=== PATIENT | female | born 1950 | race African-American/Black ===

== ENCOUNTER 2020-04-09 15:14 | Inpatient (IN) | payer OTHER ==
[~2020-04-09] VITALS: Ht 170.2 cm; Wt 68.7 kg
[2020-04-09] MEDS ORDERED: SODIUM CHLORIDE 0.9% 1,000 ML IV ONE (16:45)
[2020-04-09 17:23] LABS: Basophils # (auto) 0 10 ^3/uL (0-0.2); Basophils % (auto) 0.6 % (0.0-2.0); Eosinophils # (auto) 0 10 ^3/uL (0-0.8); Eosinophils % (auto) 0.1 % (0.0-7.0); Hematocrit 31.5 % (36.0-46.0); Hemoglobin 10.2 g/dL (12.2-16.2); Lymphocytes % (auto) 27.4 % (10.0-50.0); Mean Corpuscular Hemoglobin 23.7 pg (28.0-32.0); Mean Corpuscular Hgb Conc. 32.4 g/dL (32.0-36.0); Monocytes # (auto) 0.4 10 ^3/uL (0-1.3); Monocytes % (auto) 4.8 % (0.0-12.0); Neutrophils # (auto) 4.9 10 ^3/uL (1.6-8.6); Neutrophils % (auto) 67.1 % (37.0-80.0); Platelet Count (auto) 379 10^3/uL (140-450); Red Blood Cells 4.31 10^6/uL (4.0-5.20); White Blood Cell 7.4 10^3/uL (4.4-10.8)
[2020-04-09 17:25] LABS: Red Cell Distribution Width 20.2 % (11.8-14.3)
[2020-04-09 17:34] LABS: Alcohol, Urine < 3.0 mg/dL (0-10); Amphetamine Screen, Urine NEGATIVE (NEGATIVE); Barbiturate Scree,Urine NEGATIVE (NEGATIVE); Benzodiazephine Screen, Urine NEGATIVE (NEGATIVE); Cannabinoid Screen, Urine NEGATIVE (NEGATIVE); Cocaine Screen, Urine NEGATIVE (NEGATIVE); Opiate Scree,Urine NEGATIVE (NEGATIVE); Phencyclidine Screen, Urine NEGATIVE (NEGATIVE)
[2020-04-09 17:35] LABS: Urine Bacteria NONE SEEN /hpf (None Seen); Urine Blood TRACE /uL (Negative); Urine Hyaline Cast FEW /lpf (0 - 2); Urine Mucus FEW (None Seen); Urine Specific Gravity 1.019 (1.001-1.035); Urine WBC 47 /hpf (0 - 5); Urine WBC Clumps PRESENT /hpf (None Seen)
[2020-04-09 17:35] LABS: Albumin 2.6 g/dL (3.4-5.0); Magnesium 2.2 mg/dL (1.6-2.6)
[2020-04-09 17:41] LABS: BUN/Creatinine Ratio 20.8; Bilirubin, Total 1.7 mg/dL (0.2-1.0); Total Protein 8.6 g/dL (6.4-8.2)
[2020-04-09 17:50] LABS: Calcium 13.1 mg/dL (8.5-10.1); Potassium 2.8 mmol/L (3.5-5.1)
[2020-04-09] MEDS ORDERED: POTASSIUM CHL 20 Meq TABLET PO ONE ×2 (18:00→18:15)
[2020-04-09] MEDS ORDERED: DOCUSATE SOD 100 MG CAP PO PRN (21:45)
[2020-04-09] MEDS ORDERED: ACETAMINOPHEN 325 MG TAB PO PRN (21:45)
[2020-04-09] MEDS ORDERED: HYDROcodone-ACET 5/325MG TAB PO PRN (21:45)
[2020-04-09] MEDS ORDERED: ONDANSETRON HCL 4 MG/2 ML VIAL IV PRN (21:45)
--- NOTE | 2020-04-09 23:00 | NUR ---
MS admit from ER CHRISTIANA SALTER admitted to tele/MS after NO SBAR received. Patient oriented to Kishor coyne RN, west unit, 275 room, A bed, and unit policies regarding patient care and visiting hours. Patient weighed by bedscale and encouraged to call if they need something. All questions and concerns addressed, patient verbalized understanding.
--- NOTE | 2020-04-09 23:00 | NUR ---
Picture taken of circular abrasion on lower back. picture form placed in wound care box.
[2020-04-09] MEDS: SODIUM CHLORIDE 0.9% 1,000 ML IV SCH (23:09)
--- NOTE | 2020-04-09 23:39 | NUR ---
Per Kelli the patient does not have any family who lives here in [place], all of her relatives live in [place].
--- NOTE | 2020-04-09 23:39 | NUR ---
Spoke with the patient's cousin Kelli, she stated the patient gave her phone number to Stu, the lady who owns the property she stays on, to contact her in case anything happened. Stu called Kelli today after the patient had not been outside in 3-4 days and had barely eaten. Kelli had Stu call EMS and bring the patient to the hospital to get her help. Stu's phone number is [phone].
--- NOTE | 2020-04-09 23:46 | NUR ---
Spoke to MD Quintero and notified patient has no diet ordered, and it was cancelled earlier, and clarification, of patient being on medsurge or telemetry. MD Quintero gave new orders: keep patient on medsurge, and have patient on a regular diet. Read back and confirmed.
[2020-04-10 05:00] VITALS: BP 136/88
--- NOTE | 2020-04-10 06:37 | NUR ---
Paged MD Quintero to notify of patient having blood in urine. Awaiting call back.
[2020-04-10 08:00] VITALS: BP 115/72
--- NOTE | 2020-04-10 08:00 | NUR ---
Opening Shift Note Assumed care of patient, awake and alertx3. No S/S of distress/SOB or pain. Instructed on POC and to call for assist PRN. Be d at lowest locked position and call light within reach. Will continue to monitor for changes Q1hr and PRN.
[2020-04-10 09:00] VITALS: BP 115/72
[2020-04-10] MEDS: hydrALAZINE HCL 10 MG TAB PO SCH (10:00)
[2020-04-10] MEDS ORDERED: POTASSIUM CHL 20 Meq TABLET PO ONE (10:30)
[2020-04-10] MEDS ORDERED: cefTRIAXone 1GM/50ML D5W 50 ML IV ONE (10:30)
--- NOTE | 2020-04-10 10:30 | NUR ---
Dr. Mcgrath at bedside
--- NOTE | 2020-04-10 11:30 | NUR ---
Per MD hold potassium until CMP labs come back.
--- NOTE | 2020-04-10 12:03 | NUR ---
Nutrition Consult/assessment Notes Please see attached link for complete assessment Est energy needs BW 63 [id number] kcal (25-30 kcal/kg BW), Est protein needs: 63-75g (1-1.2g/kgBW). Will reassess prn. Addendum: 04/10/20 at [address] Amended: Links added.
[2020-04-10 13:00] VITALS: BP 137/68
[2020-04-10] MEDS: SODIUM CHLORIDE 0.9% 1,000 ML IV SCH (14:22)
--- NOTE | 2020-04-10 14:27 | NUR ---
Assisted patient to bedside commode with standby assist.
--- NOTE | 2020-04-10 17:45 | NUR ---
Called lab, still have not drawn labs for the patient. Awaiting call back, and sending a flow match sofa cutter right away per secretary book keeper.
[2020-04-10 18:44] LABS: Albumin 2.2 g/dL (3.4-5.0); Calcium 10.9 mg/dL (8.5-10.1); Potassium 3.1 mmol/L (3.5-5.1)
[2020-04-10 18:48] LABS: BUN/Creatinine Ratio 20.4; Bilirubin, Total 0.4 mg/dL (0.2-1.0); Total Protein 7.2 g/dL (6.4-8.2)
--- NOTE | 2020-04-10 19:14 | NUR ---
Closing note Patient is comfortably resting in bed on room air, no s/s of distress/sob noted/stated. Bed at lowest locked position and call light within reach. bed alarm on. Will endorse care to NOC RN.
--- NOTE | 2020-04-10 19:20 | NUR ---
Received report from the Day Shift RN. Thornton. Pt. resting and still sleeping after dinner. Pt. denies pain when assessed. Keep pt. room environment safe and quiet with bed alarms on continuous.
[2020-04-10 22:00] VITALS: BP 103/60
--- NOTE | 2020-04-10 23:00 | NUR ---
Provided pt. assistance with ADL's and assisted to the BSC. Pt. has unsteady gait and is generally weak. Continuous with bed alarms on while pt. is in bed. Keep clean, dry, safe and software integration developer bed.
[2020-04-11] VITALS (7 sets, daily range): BP systolic 124–199; BP diastolic 66–102
--- NOTE | 2020-04-11 00:30 | NUR ---
Pt. is asleep. No s/s of pain or discomfort. Pt. with call-light within reach and bed alarms on.
--- NOTE | 2020-04-11 03:30 | NUR ---
Pt. provided assistance with ADL's and assisted to the BSC and back to bed. Bed alarms on. Pt. able to void well clear yellow urine in sufficient amount.
--- NOTE | 2020-04-11 05:00 | NUR ---
Pt. awakens intermittently to go to the BSC. Returned to sleep. Bed alarms on continuously.
--- NOTE | 2020-04-11 07:39 | NUR ---
Opening Shift Note Assumed care of patient, patient comfortably sleeping in bed, on room air, breath sounds even and unlabored. No S/S of distress/SOB or pain. Instructed on POC and to call for assist PRN. Bed at lowest locked position and call light within reach. Will continue to monitor for changes Q1hr and PRN
[2020-04-11] MEDS: SODIUM CHLORIDE 0.9% 1,000 ML IV SCH ×2 (07:40→23:42)
--- NOTE | 2020-04-11 09:24 | NUR ---
Dr. Mcgrath at bedside. called Microbiology regarding blood cultures
[2020-04-11] MEDS: cefTRIAXone 1GM/50ML D5W 50 ML IV SCH (09:32)
[2020-04-11] MEDS: hydrALAZINE HCL 10 MG TAB PO SCH (10:17)
[2020-04-11 12:35] LABS: Calcium 11.1 mg/dL (8.5-10.1); Potassium 3.2 mmol/L (3.5-5.1)
[2020-04-11 12:39] LABS: BUN/Creatinine Ratio 18.3
--- NOTE | 2020-04-11 14:00 | NUR ---
Areli Mcgrath regarding patient's BP. Patient's blood pressure is 162/87, HR 70, no c/o pain, no s/s of distress noted. Will continue to monitor PRN. Addendum: 04/11/20 at 1444 by Ginette Haney RN Orders received. Please see
[2020-04-11] MEDS ORDERED: METOPROLOL TARTRATE 25 MG TAB PO ONE (14:45)
--- NOTE | 2020-04-11 17:46 | NUR ---
Patients blood pressure is 187/76, HR 63, Spo2 100%. No s/s of distress/sob noted/stated. No c/o pain. Paged credit union manager Hospitalist. Addendum: 04/11/20 at 1752 by Ginette Haney RN Orders received, for hydralazine 10mg, IV once and Q2H PRN for systolic BP over 160. Orders received and verified. Addendum: 04/11/20 at 1810 by Ginette Haney RN received a call from pharmacist, hydralazine is currently backordered, unavailable. Paged Dr. Heller for orders.
[2020-04-11] MEDS ORDERED: hydrALAZINE HCL 20 MG/ML VL IV PRN (18:00)
[2020-04-11] MEDS ORDERED: hydrALAZINE HCL 20 MG/ML VL IV ONE (18:00)
--- NOTE | 2020-04-11 18:54 | NUR ---
closing note Patient is comfortably resting in bed no s/s of distress/sob noted/stated. Bed at lowest locked position and call light within reach. Will endorse care to NOC RN. Awaiting for Hospitalist call
--- NOTE | 2020-04-11 19:30 | NUR ---
Opening Shift Note Assumed care of patient, awake and alert. No S/S of distress/SOB or pain. Instructed on POC and to call for assist PRN, will continue to monitor for changes Q1hr and PRN. Monitoring BP
--- NOTE | 2020-04-11 20:00 | NUR ---
got hydralazine from ROSEANNE but pt;s BP is better. Will continue to monitor
[2020-04-11] MEDS: METOPROLOL TARTRATE 25 MG TAB PO SCH (21:38)
--- NOTE | 2020-04-11 23:04 | NUR ---
refused BP med for now. Will recheck again later
[2020-04-12 05:00] VITALS: BP 152/72
[2020-04-12 09:00] VITALS: BP 140/74
[2020-04-12] MEDS ORDERED: VANCOMYCIN PER PHARMACY 0 MG IV SCH (09:00)
[2020-04-12] MEDS: cefTRIAXone 1GM/50ML D5W 50 ML IV SCH (10:27)
[2020-04-12] MEDS: D5W/ SOD CHL 0.9%/KCL 20MEQ 1,000 ML IV SCH ×2 (10:28→21:32)
[2020-04-12] MEDS: hydrALAZINE HCL 10 MG TAB PO SCH (10:28)
[2020-04-12] MEDS: METOPROLOL TARTRATE 25 MG TAB PO SCH ×2 (10:29→21:32)
--- NOTE | 2020-04-12 11:14 | NUR ---
Assessment Social Service consult regarding patient being homeless. Patient states prior to admission she lived in her truck. Patient states she been living in her truck for the past 10 years and functioned independently. Patient states she receives an amount of 1450 from [employer]. Patient informed me she has a cane. Discussed with patient options and resources for placement. Provided information to clothes closet and meal prior to discharge. Patient accepted resource. Patient stated she will make her own arraignments for a living using resources provided. Patient requested glasses. Informed patient I will informed bedside nurse. Offered pt taxi voucher within 30 miles and patient agreed. Completed home less assessment and patient signed homeless waiver. Will follow-up and provide intervention as appropriate. Informed KIM Plascencia regarding glasses for patient. Addendum: 04/12/20 at 1122 by SHAUNA TEAGUE Amended: Links added.
[2020-04-12] MEDS: VANCOMYCIN 1GM/250ML 250 ML IV SCH (11:32)
[2020-04-12 12:37] LABS: Creatinine, Urine 70 mg/dL (30.0-125.0); Sodium Urine 46 mmol/L (40-220)
[2020-04-12 13:00] VITALS: BP 145/72
[2020-04-12 17:00] VITALS: BP 127/70
[2020-04-12 22:00] VITALS: BP 144/72
[2020-04-13 05:00] VITALS: BP 145/61
[2020-04-13 07:17] LABS: Albumin 1.8 g/dL (3.4-5.0); Calcium 9.7 mg/dL (8.5-10.1); Potassium 3.4 mmol/L (3.5-5.1)
[2020-04-13 07:21] LABS: BUN/Creatinine Ratio 19.2; Bilirubin, Total 0.2 mg/dL (0.2-1.0); Total Protein 6.2 g/dL (6.4-8.2)
--- NOTE | 2020-04-13 07:35 | NUR ---
Opening Shift Note Assumed care of patient, awake and alert. No S/S of distress/SOB or pain. Updated on POC and instructed to call for assistance PRN, patient verbalized understanding. Bed locked in lowest position , side rail up x2, call light within reach. Safety precautions in place. Will continue to monitor for changes Q1hr and PRN.
[2020-04-13 09:00] VITALS: BP 140/85
[2020-04-13] MEDS: cefTRIAXone 1GM/50ML D5W 50 ML IV SCH (09:03)
[2020-04-13] MEDS: hydrALAZINE HCL 10 MG TAB PO SCH (09:04)
[2020-04-13] MEDS: METOPROLOL TARTRATE 25 MG TAB PO SCH (09:05)
[2020-04-13] MEDS ORDERED: POTASSIUM PHOSPHATE 44 MEQ in D5W 5% 250 ML IV ONE (10:15)
[2020-04-13] MEDS: VANCOMYCIN 1GM/250ML 250 ML IV SCH (11:00)
[2020-04-13] MEDS: D5W/ SOD CHL 0.9%/KCL 20MEQ 1,000 ML IV SCH (11:07)
[2020-04-13 13:00] VITALS: BP 146/89
--- NOTE | 2020-04-13 13:16 | NUR ---
SPOKE WITH MD BRAVO REGARDING NEGATIVE HEAD CT, PATIENT IS OKAY TO BE DISCHARGED ONCE POTASSIUM PHOSPHATE INFUSION IS COMPLETED.
--- NOTE | 2020-04-13 13:57 | NUR ---
PATIENT RX DELIVERED TO BEDSIDE
--- NOTE | 2020-04-13 16:11 | NUR ---
D/C metal loader Jennifer advised me patient wanted to speak to me. Spoke to patient, per patient she does not want to spend her money on a room and board and will be returning back to her truck upon discharge. Informed KIM Plascencia.
[2020-04-13 17:00] VITALS: BP 125/68
--- NOTE | 2020-04-13 21:11 | NUR ---
Discharge instructions given as ordered. Encourage to follow up with PMD as instructed. All questions and concerns addressed. Patient verbalized understanding. Medication reconciliation form completed and copy given to patient. Home medication prescriptions given to patient. Already received all vacines. IV removed with catheter intact, pressure dressing applied. Patient taken to vehicle via wheelchair with all personal belongings, accompanied by staff and family member. No distress noted at time of departure. Patient leaving with taxi. taxi voucher provided. Addendum: 04/13/20 at 2116 by Kishor Blankenship RN no family member present. Addendum: 04/13/20 at 2119 by Kishor Blankenship RN potassium phosphate completed at 2109. taxi called approx at 2100.
== END 2020-04-13 21:20 | disposition home or self-care (01) | DRG 70 ==
LOC: EDBD 15:14 → ER 15:14 → OVERFLOW 15:15 → ER 22:15 → WEST WING 22:20
PROVIDERS: ADMIT Hospitalist; ATTEND Family Medicine
DX: G93.40 Encephalopathy, unspecified (principal); N17.0 Acute kidney failure with tubular necrosis; N39.0 Urinary tract infection, site not specified; E86.0 Dehydration; E87.6 Hypokalemia; E83.52 Hypercalcemia; E88.09 Other disorders of plasma-protein metabolism, not elsewhere classified; I10 Essential (primary) hypertension; D64.9 Anemia, unspecified; B95.61 Methicillin susceptible Staphylococcus aureus infection as the cause of diseases classified elsewhere
CPT/HCPCS: 36415; 70450; 71045; 80048; 80053; 80307; 81001; 82306; 82570; 82962; 83735; 83970; 84100; 84300; 84484; 84702; 85025; 87040; 87086; 87088; 87186; G0378; J0696; J7060

== ENCOUNTER → 2020-04-20 | Emergency (ER) | payer OTHER ==
[~2020-04-20] VITALS: Ht 170.2 cm; Wt 83.9 kg
[~2020-04-20] MED LIST: FERROUS SULFATE 325 MG TAB PO ONE; KETOROLAC TROMETH 30 MG/ML 1ML VIAL IV ONE; POTASSIUM EFFERVESENT TAB 25 MEQ PO ONE; SODIUM CHLORIDE 0.9% 1,000 ML IV ONE
[2020-04-20 17:34] LABS: Basophils # (auto) 0 10 ^3/uL (0-0.2); Eosinophils # (auto) 0 10 ^3/uL (0-0.8); Eosinophils % (auto) 0.2 % (0.0-7.0); Hemoglobin 8.8 g/dL (12.2-16.2); Mean Corpuscular Volume 73.1 fL (80.0-100.0); Monocytes # (auto) 0.3 10 ^3/uL (0-1.3)
[2020-04-20 17:36] LABS: Basophils % (auto) 0.5 % (0.0-2.0); Hematocrit 27.4 % (36.0-46.0); Lymphocytes # (auto) 1.7 10 ^3/uL (0.4-5.4); Lymphocytes % (auto) 23.7 % (10.0-50.0); Mean Corpuscular Hemoglobin 23.5 pg (28.0-32.0); Mean Corpuscular Hgb Conc. 32.1 g/dL (32.0-36.0); Monocytes % (auto) 4.8 % (0.0-12.0); Neutrophils % (auto) 70.8 % (37.0-80.0); Platelet Count (auto) 507 10^3/uL (140-450); Red Blood Cells 3.75 10^6/uL (4.0-5.20)
[2020-04-20 17:37] LABS: Red Cell Distribution Width 20.7 % (11.8-14.3)
[2020-04-20 17:53] LABS: Albumin 2.4 g/dL (3.4-5.0); Anion Gap 7 (5-15); Blood Urea Nitrogen 11 mg/dL (7-18); Calcium 10.6 mg/dL (8.5-10.1); Carbon Dioxide 25 mmol/L (21-32); Chloride 105 mmol/L (98-107); Glucose 74 mg/dL (74-106); Sodium 137 mmol/L (136-145)
[2020-04-20 17:58] LABS: Alanine Aminotransferase 15 U/L (13-56); Alkaline Phosphatase 80 U/L (45-117); Aspartate Aminotransferase 17 U/L (15-37); BUN/Creatinine Ratio 10.9; Bilirubin, Total 0.5 mg/dL (0.2-1.0); GFR African American 69 mL/min; GFR Non-African American 57 mL/min; Total Protein 7.3 g/dL (6.4-8.2)
[2020-04-20 20:01] VITALS: BP 152/63
== END | disposition home or self-care (01) ==
LOC: EDUNIT# 16:49 → EDBD 16:54 → ER 16:54
DX: I10 Essential (primary) hypertension (principal); E87.6 Hypokalemia; E86.0 Dehydration; D64.9 Anemia, unspecified; E44.0 Moderate protein-calorie malnutrition; Z68.29 Body mass index [BMI] 29.0-29.9, adult
CPT/HCPCS: 36415; 71045; 74176; 80053; 83880; 84484; 85025; 96361; 96374; 99285; J1885

== ENCOUNTER 2020-06-11 09:27 | Emergency (ER) | payer OTHER ==
[~2020-06-11] VITALS: Ht 165.1 cm; Wt 61.2 kg
[2020-06-11] MEDS ORDERED: SODIUM CHLORIDE 0.9% 1,000 ML IV ONE (09:45)
[2020-06-11 10:41] LABS: Basophils # (auto) 0.1 10 ^3/uL (0-0.2); Eosinophils # (auto) 0 10 ^3/uL (0-0.8); Eosinophils % (auto) 0.1 % (0.0-7.0); Hemoglobin 10.7 g/dL (12.2-16.2); White Blood Cell 7.6 10^3/uL (4.4-10.8)
[2020-06-11 10:43] LABS: Basophils % (auto) 1.1 % (0.0-2.0); Hematocrit 33.3 % (36.0-46.0); Lymphocytes # (auto) 1.2 10 ^3/uL (0.4-5.4); Lymphocytes % (auto) 15.8 % (10.0-50.0); Mean Corpuscular Hemoglobin 23.7 pg (28.0-32.0); Mean Corpuscular Hgb Conc. 32.1 g/dL (32.0-36.0); Mean Corpuscular Volume 73.7 fL (80.0-100.0); Monocytes # (auto) 0.2 10 ^3/uL (0-1.3); Monocytes % (auto) 3.3 % (0.0-12.0); Neutrophils % (auto) 79.7 % (37.0-80.0); Platelet Count (auto) 376 10^3/uL (140-450); Red Blood Cells 4.52 10^6/uL (4.0-5.20); Red Cell Distribution Width 17.2 % (11.8-14.3)
[2020-06-11 11:02] LABS: Albumin 2.8 g/dL (3.4-5.0); Anion Gap 5 (5-15); Blood Urea Nitrogen 11 mg/dL (7-18); Carbon Dioxide 27 mmol/L (21-32); Chloride 104 mmol/L (98-107); Glucose 137 mg/dL (74-106); Potassium 3.4 mmol/L (3.5-5.1); Sodium 136 mmol/L (136-145)
[2020-06-11 11:08] LABS: Alanine Aminotransferase 19 U/L (13-56); Alkaline Phosphatase 99 U/L (45-117); Aspartate Aminotransferase 24 U/L (15-37); BUN/Creatinine Ratio 9.3; Bilirubin, Total 0.6 mg/dL (0.2-1.0); GFR African American 58 mL/min; GFR Non-African American 48 mL/min; Total Protein 8.1 g/dL (6.4-8.2)
[2020-06-11 11:15] LABS: Calcium 13.7 mg/dL (8.5-10.1)
[2020-06-11 11:41] LABS: Urine Bacteria NONE SEEN /hpf (None Seen); Urine Blood 2+ /uL (Negative); Urine Specific Gravity 1.004 (1.001-1.035); Urine WBC 248 /hpf (0 - 5); Urine WBC Clumps PRESENT /hpf (None Seen)
[2020-06-11] MEDS ORDERED: cefTRIAXone 1GM/50ML D5W 50 ML IV ONE (14:15)
[2020-06-11 18:21] VITALS: BP 158/66
== END 2020-06-11 17:58 | disposition home or self-care (01) ==
LOC: ER 09:27 → EDBD 09:27 → ER 17:58
DX: I10 Essential (primary) hypertension (principal); R55 Syncope and collapse; N39.0 Urinary tract infection, site not specified; R00.1 Bradycardia, unspecified; E83.52 Hypercalcemia; R29.6 Repeated falls
CPT/HCPCS: 36415; 70450; 71045; 72125; 73030; 80053; 81001; 84484; 85025; 93005; 96361; 96365; 99285; J0696; J7030